=== PATIENT | female | born 1955 | race Caucasian/White ===

== ENCOUNTER 2016-06-12 09:20 | Outpatient (CLI) | payer OTHER ==
[2016-06-12] MEDS ORDERED: BARIUM SULFATE 135 ML BOTTLE PO ONE (10:25)
[2016-06-12] MEDS ORDERED: BARIUM SULFATE 176 GM BOTTLE PO ONE (10:25)
== END 2016-06-12 09:21 | disposition home or self-care (01) ==
DX: K21.9 Gastro-esophageal reflux disease without esophagitis (principal); K44.9 Diaphragmatic hernia without obstruction or gangrene; K22.8 Other specified diseases of esophagus; R13.10 Dysphagia, unspecified
CPT/HCPCS: 74220; A9270

== ENCOUNTER 2016-08-07 12:19 | Outpatient (CLI) | payer OTHER | END 2016-08-07 12:20 | disposition home or self-care (01) | DX: M79.631 Pain in right forearm (principal) ==

== ENCOUNTER 2016-09-06 16:50 | Outpatient (CLI) | payer OTHER | END 2016-09-06 16:51 | disposition home or self-care (01) | DX: F98.5 Adult onset fluency disorder (principal); H57.11 Ocular pain, right eye ==

== ENCOUNTER 2017-01-22 14:26 | Outpatient (CLI) | payer OTHER | END 2017-01-22 14:27 | disposition home or self-care (01) | LOC: LAB.WCP 14:26 | PROVIDERS: ATTEND Internal Medicine | DX: Z78.9 Other specified health status (principal) | CPT/HCPCS: 36415; 86803 ==

== ENCOUNTER 2017-03-19 14:53 | Outpatient (CLI) | payer OTHER | END 2017-03-19 14:54 | disposition home or self-care (01) | LOC: DI 14:53 | PROVIDERS: ATTEND Family Medicine | DX: Z53.9 Procedure and treatment not carried out, unspecified reason (principal) ==

== ENCOUNTER 2017-03-21 09:18 | Outpatient (CLI) | payer OTHER ==
--- NOTE | 2017-03-21 12:45 | XRAY Report ---
TWO-VIEW CHEST: 03/21/2017 CLINICAL INDICATION: Cough. COMPARISON: 01/29/2017 FINDINGS: Frontal and lateral views of the chest demonstrate a normal cardiac silhouette. The lungs remain clear. No effusion or pneumothorax is present. IMPRESSION: NORMAL CHEST, UNCHANGED. JOB #: [id number] EXT JOB #:[id number]
== END 2017-03-21 09:19 | disposition home or self-care (01) ==
LOC: DI.N 09:18
PROVIDERS: ATTEND Family Medicine
DX: R05 Cough (principal)
CPT/HCPCS: 71020

== ENCOUNTER 2017-09-21 08:00 | Outpatient (CLI) | payer OTHER ==
[2017-09-21 13:07] LABS: BASOPHILS % (AUTO) 0.9 %; EOSINOPHILS # (AUTO) 0.2 10^3/uL (0.0-0.7); EOSINOPHILS % (AUTO) 3.4 %; HGB - HEMOGLOBIN 12.2 g/dL (12.0-16.0); LYMPHOCYTES # (AUTO) 1.6 10^3/uL (1.5-3.5); LYMPHOCYTES % (AUTO) 30.7 %; MEAN CORPUSCULAR HEMOGLOBIN 27.1 pg (27.0-31.0); MEAN CORPUSCULAR HGB CONC 32.9 g/dL (32.0-36.0); MEAN CORPUSCULAR VOLUME 82.6 fL (81.0-99.0); MEAN PLATELET VOLUME 8.1 fL (7.9-10.8); MONOCYTES # (AUTO) 0.4 10^3/uL (0.0-1.0); MONOCYTES % (AUTO) 7.8 %; NEUTROPHILS % (AUTO) 57.2 %; PLT - PLATELET COUNT 199 10^3/uL (130-450); RED BLOOD COUNT 4.49 10^6/uL (4.20-5.40); RED CELL DISTRIBUTION WIDTH 15.2 % (12.0-15.0); WHITE BLOOD COUNT 5.2 x10^3/uL (4.8-10.8)
[2017-09-21 13:36] LABS: HEMOGLOBIN A1C 0.48 g/dL; HEMOGLOBIN A1C % 5.5 % (4.6-6.2)
[2017-09-21 13:45] LABS: CHOL/HDL RATIO 5.2 (<4.4); CHOLESTEROL 255 mg/dL; HDL CHOLESTEROL 49 mg/dL; LDL CHOLESTEROL,CALCULATED 171 mg/dL; LDL/HDL RATIO 3.5 (<4.4); VLDL CHOLESTEROL 35 mg/dL
== END 2017-09-21 08:01 | disposition home or self-care (01) ==
LOC: LAB.WCP 08:00
PROVIDERS: ATTEND Family Medicine
DX: Z00.00 Encounter for general adult medical examination without abnormal findings (principal); E78.5 Hyperlipidemia, unspecified; I10 Essential (primary) hypertension
CPT/HCPCS: 36415; 80061; 83036; 83721; 85025

== ENCOUNTER 2017-10-12 08:00 | Outpatient (CLI) | payer OTHER, MEDICAID ==
[2017-10-12 13:53] LABS: CALCIUM 9.7 mg/dL (8.5-10.3); CREATININE 0.9 mg/dL (0.4-1.0)
== END 2017-10-12 08:01 | disposition home or self-care (01) ==
LOC: LAB.WCP 08:00
PROVIDERS: ATTEND Family Medicine
DX: I10 Essential (primary) hypertension (principal)
CPT/HCPCS: 36415; 80048

== ENCOUNTER 2018-05-28 08:00 | Outpatient (CLI) | payer OTHER, MEDICAID ==
[2018-05-28 12:33] LABS: BASOPHILS % (AUTO) 0.8 %; EOSINOPHILS # (AUTO) 0.2 10^3/uL (0.0-0.7); EOSINOPHILS % (AUTO) 5.3 %; HGB - HEMOGLOBIN 11.8 g/dL (12.0-16.0); LYMPHOCYTES # (AUTO) 1.4 10^3/uL (1.5-3.5); LYMPHOCYTES % (AUTO) 30.2 %; MEAN CORPUSCULAR HEMOGLOBIN 28.1 pg (27.0-31.0); MEAN CORPUSCULAR HGB CONC 33.2 g/dL (32.0-36.0); MEAN CORPUSCULAR VOLUME 84.6 fL (81.0-99.0); MEAN PLATELET VOLUME 8.3 fL (7.9-10.8); MONOCYTES # (AUTO) 0.4 10^3/uL (0.0-1.0); MONOCYTES % (AUTO) 8.6 %; NEUTROPHILS # (AUTO) 2.6 10^3/uL (1.5-6.6); NEUTROPHILS % (AUTO) 55.1 %; PLT - PLATELET COUNT 234 10^3/uL (130-450); RED BLOOD COUNT 4.22 10^6/uL (4.20-5.40); RED CELL DISTRIBUTION WIDTH 15.7 % (12.0-15.0); WHITE BLOOD COUNT 4.7 x10^3/uL (4.8-10.8)
[2018-05-28 13:08] LABS: ALBUMIN/GLOBULIN RATIO 1.1 (1.0-2.2); ALKALINE PHOSPHATASE 82 IU/L (42-121); ALT ALANINE AMINOTRANSFERASE 24 IU/L (10-60); AST ASPARTATE AMINOTRANSFERASE 24 IU/L (10-42); BILIRUBIN,TOTAL 1.1 mg/dL (0.2-1.0); BUN - BLOOD UREA NITROGEN 11 mg/dL (6-20); CALCIUM 9.6 mg/dL (8.5-10.3); CARBON DIOXIDE - CO2 28 mmol/L (21-32); CHLORIDE 101 mmol/L (101-111); CHOL/HDL RATIO 4.8 (<4.4); CHOLESTEROL 230 mg/dL; CREATININE 0.8 mg/dL (0.4-1.0); GFR - MDRD 73 (>89); GLUCOSE 105 mg/dL (70-100); HDL CHOLESTEROL 48 mg/dL; LDL CHOLESTEROL,CALCULATED 148 mg/dL; LDL/HDL RATIO 3.1 (<4.4); SODIUM 136 mmol/L (135-145); TOTAL PROTEIN 7.5 g/dL (6.7-8.2); VLDL CHOLESTEROL 34 mg/dL
[2018-05-28 13:09] LABS: HB2 TOTAL 12.4 g/dL; HEMOGLOBIN A1C 0.45 g/dL; HEMOGLOBIN A1C % 5.5 % (4.6-6.2)
== END 2018-05-28 23:59 | disposition home or self-care (01) ==
LOC: LAB.WCP 08:00
PROVIDERS: ATTEND Family Medicine
DX: I10 Essential (primary) hypertension (principal); E78.5 Hyperlipidemia, unspecified
CPT/HCPCS: 36415; 80050; 80061; 83036; 83721

== ENCOUNTER 2018-11-08 07:11 | Outpatient (CLI) | payer OTHER ==
[2018-11-08 12:30] LABS: BASOPHILS % (AUTO) 0.4 %; EOSINOPHILS # (AUTO) 0.2 10^3/uL (0.0-0.7); EOSINOPHILS % (AUTO) 3.8 %; LYMPHOCYTES # (AUTO) 1.6 10^3/uL (1.5-3.5); LYMPHOCYTES % (AUTO) 31.5 %; MEAN CORPUSCULAR HEMOGLOBIN 27.8 pg (27.0-31.0); MEAN CORPUSCULAR HGB CONC 31.8 g/dL (32.0-36.0); MEAN CORPUSCULAR VOLUME 87.3 fL (81.0-99.0); MEAN PLATELET VOLUME 9.8 fL (7.9-10.8); MONOCYTES # (AUTO) 0.5 10^3/uL (0.0-1.0); MONOCYTES % (AUTO) 9.6 %; NEUTROPHILS # (AUTO) 2.7 10^3/uL (1.5-6.6); NEUTROPHILS % (AUTO) 54.5 %; PLT - PLATELET COUNT 233 10^3/uL (130-450); RED BLOOD COUNT 4.32 10^6/uL (4.20-5.40); RED CELL DISTRIBUTION WIDTH 14.7 % (12.0-15.0)
[2018-11-08 12:53] LABS: ALBUMIN/GLOBULIN RATIO 1.1 (1.0-2.2); ALKALINE PHOSPHATASE 107 IU/L (42-121); ALT ALANINE AMINOTRANSFERASE 23 IU/L (10-60); AST ASPARTATE AMINOTRANSFERASE 20 IU/L (10-42); BILIRUBIN,TOTAL 0.9 mg/dL (0.2-1.0); BUN - BLOOD UREA NITROGEN 13 mg/dL (6-20); CALCIUM 9.6 mg/dL (8.5-10.3); CARBON DIOXIDE - CO2 27 mmol/L (21-32); CHLORIDE 100 mmol/L (101-111); CHOL/HDL RATIO 5.6 (<4.4); CHOLESTEROL 222 mg/dL; CREATININE 0.8 mg/dL (0.4-1.0); GFR - MDRD 72 (>89); GLUCOSE 101 mg/dL (70-100); HDL CHOLESTEROL 40 mg/dL; LDL CHOLESTEROL,CALCULATED 144 mg/dL; LDL/HDL RATIO 3.6 (<4.4); SODIUM 139 mmol/L (135-145); TOTAL PROTEIN 7.7 g/dL (6.7-8.2); VLDL CHOLESTEROL 38 mg/dL
== END 2018-11-08 23:59 | disposition home or self-care (01) ==
LOC: LAB.WCP 07:11
PROVIDERS: ATTEND Family Medicine
DX: I10 Essential (primary) hypertension (principal); E78.5 Hyperlipidemia, unspecified; E03.9 Hypothyroidism, unspecified
CPT/HCPCS: 36415; 80050; 80061; 83721

== ENCOUNTER 2018-12-09 | Outpatient (CLI) | payer OTHER | END 2018-12-09 23:59 | disposition home or self-care (01) | DX: N39.0 Urinary tract infection, site not specified (principal) ==

== ENCOUNTER 2019-04-25 10:29 | Outpatient (CLI) | payer OTHER ==
[2019-04-25 13:27] LABS: BASOPHILS % (AUTO) 0.8 %; EOSINOPHILS # (AUTO) 0.2 10^3/uL (0.0-0.7); EOSINOPHILS % (AUTO) 4.2 %; LYMPHOCYTES # (AUTO) 1.4 10^3/uL (1.5-3.5); MEAN CORPUSCULAR HEMOGLOBIN 27.7 pg (27.0-31.0); MEAN CORPUSCULAR HGB CONC 31.5 g/dL (32.0-36.0); MEAN PLATELET VOLUME 10.3 fL (7.9-10.8); MONOCYTES # (AUTO) 0.4 10^3/uL (0.0-1.0); MONOCYTES % (AUTO) 8.4 %; NEUTROPHILS % (AUTO) 59.4 %; PLT - PLATELET COUNT 213 10^3/uL (130-450); RED BLOOD COUNT 4.33 10^6/uL (4.20-5.40); RED CELL DISTRIBUTION WIDTH 14.3 % (12.0-15.0)
[2019-04-25 19:06] LABS: ALBUMIN/GLOBULIN RATIO 1.3 (1.0-2.2); CALCIUM 9.7 mg/dL (8.5-10.3); CREATININE 0.8 mg/dL (0.4-1.0); TOTAL PROTEIN 7.2 g/dL (6.7-8.2)
[2019-04-25 19:14] LABS: T4 (THYROXINE) 6.76 ug/dL (6.09-12.23)
[2019-04-25 19:26] LABS: FOLATE 21.24 ng/mL (5.90 - >24.8)
[2019-04-26 04:31] LABS: ESTRADIOL <15 pg/mL; PROGESTERONE <0.5 ng/mL
== END 2019-04-25 23:59 | disposition home or self-care (01) ==
LOC: LAB.WCP 10:29
PROVIDERS: ATTEND Family Medicine
DX: I10 Essential (primary) hypertension (principal); E03.9 Hypothyroidism, unspecified; L65.9 Nonscarring hair loss, unspecified; K21.9 Gastro-esophageal reflux disease without esophagitis; D64.9 Anemia, unspecified
CPT/HCPCS: 36415; 80050; 82607; 82670; 82728; 82746; 83540; 84144; 84436; 84466; 84481

== ENCOUNTER 2019-07-08 06:06 | Outpatient (CLI) | payer MEDICAID, OTHER ==
[2019-07-08 13:46] LABS: H. PYLORIS ANTIGEN STL NEGATIVE (Negative)
== END 2019-07-08 23:59 | disposition home or self-care (01) ==
LOC: LAB.R 06:06
PROVIDERS: ATTEND Physician Assistant Medical
DX: K21.9 Gastro-esophageal reflux disease without esophagitis (principal)
CPT/HCPCS: 87338

== ENCOUNTER 2020-02-26 15:17 | Outpatient (CLI) | payer OTHER ==
--- NOTE | 2020-02-26 16:24 | CT Report ---
PROCEDURE: HEAD WO INDICATIONS: HEADACHE, CAROTID STENOSIS TECHNIQUE: Noncontrast 4.5 mm thick angled axial sections acquired from the foramen magnum to the vertex. For r adiation dose reduction, the following was used: automated exposure control, adjustment of mA and/or kV according to patient size. COMPARISON: None. FINDINGS: Image quality: Excellent. CSF spaces: Basal cisterns are patent. No extra-axial fluid collections. Ventricles are normal in size and shape. Brain: No midline shift. No intracranial masses or hemorrhage. Oseguera-white matter interface is norm al. Skull and face: Calvarium and visualized facial bones are intact, without suspicious lesions. Sinuses: Visualized sinuses and mastoids are clear. IMPRESSION: No acute intracranial finding. Reviewed by: David Espinosa MD on 02/26/2020 4:23 PM PDT Approved by: David Espinosa MD on 02/26/2020 4:23 PM PDT Station ID: [id number]
--- NOTE | 2020-02-26 18:11 | Ultrasound Report ---
PROCEDURE: Carotid Doppler Complete INDICATIONS: HEADACHE, CAROTID STENOSIS TECHNIQUE: Color and pulse Doppler interrogation was performed of both carotid systems, with image documentation and velocity measurements. COMPARISON: None. FINDINGS: Right side: Common carotid artery peak systolic velocity: 108.6 cm/sec. Internal carotid artery peak systolic velocity: 63.1 cm/sec. Internal carotid artery end diastolic velocity: 18.3 cm/sec. External carotid artery peak systolic velocity: 57.2 cm/sec. ICA/CCA peak systolic ratio: 0.6 . Oseguera scale imaging description: Mild to moderate amount of atherosclerotic plaques are seen in dista l common carotid artery and bilateral proximal internal and external carotid arteries. Percent internal carotid artery stenosis: Less than 50% . Vertebral artery: Flow direction is antegrade. Left side: Common carotid artery peak systolic velocity: 124.9 cm/sec. Internal carotid artery peak systolic velocity: 69.6 cm/sec. Internal carotid artery end diastolic velocity: 20.8 cm/sec. External carotid artery peak systolic velocity: 151.5 cm/sec. ICA/CCA peak systolic ratio: 0.6 . Oseguera scale imaging description: Mild to moderate amount of atherosclerotic plaques are seen in dista l common carotid artery and proximal internal and external carotid arteries. Percent internal carotid artery stenosis: Less than 50% . Vertebral artery: Flow direction is antegrade. IMPRESSION: Finding is suggestive of less than 50% stenosis in bilateral proximal internal carotid arteries. The estimate of stenosis included in the report of the imaging study was calculated using the NASCET method Reviewed by: Laith Prajapati MD on 02/26/2020 5:09 PM [facility] Approved by: Laith Prajapati MD on 02/26/2020 5:09 PM [facility] Station ID: [id number]
== END 2020-02-26 15:18 | disposition home or self-care (01) ==
LOC: DI 15:17
PROVIDERS: ATTEND Physician Assistant Medical
DX: R51.9 Headache, unspecified (principal); I65.23 Occlusion and stenosis of bilateral carotid arteries
CPT/HCPCS: 70450; 93880

== ENCOUNTER 2020-03-05 08:00 | Outpatient (CLI) | payer OTHER ==
[2020-03-05 11:59] LABS: ALBUMIN/GLOBULIN RATIO 1.2 (1.0-2.2); ALKALINE PHOSPHATASE 100 IU/L (42-121); ALT ALANINE AMINOTRANSFERASE 26 IU/L (10-60); AST ASPARTATE AMINOTRANSFERASE 21 IU/L (10-42); BILIRUBIN,TOTAL 1.2 mg/dL (0.2-1.0); BUN - BLOOD UREA NITROGEN 13 mg/dL (6-20); CALCIUM 9.9 mg/dL (8.5-10.3); CARBON DIOXIDE - CO2 26 mmol/L (21-32); CHLORIDE 101 mmol/L (101-111); CHOL/HDL RATIO 5.5 (<4.4); CHOLESTEROL 274 mg/dL; CREATININE 0.8 mg/dL (0.4-1.0); GLUCOSE 102 mg/dL (70-100); HDL CHOLESTEROL 50 mg/dL; LDL CHOLESTEROL,CALCULATED 180 mg/dL; LDL/HDL RATIO 3.6 (<4.4); SODIUM 138 mmol/L (135-145); TOTAL PROTEIN 7.4 g/dL (6.7-8.2); VLDL CHOLESTEROL 44 mg/dL
== END 2020-03-05 23:59 | disposition home or self-care (01) ==
LOC: LAB.WCP 08:00
PROVIDERS: ATTEND Physician Assistant Medical
DX: E78.5 Hyperlipidemia, unspecified (principal); E03.9 Hypothyroidism, unspecified
CPT/HCPCS: 36415; 80053; 80061; 83721; 84443

== ENCOUNTER 2020-07-11 07:00 | Outpatient (CLI) | payer OTHER ==
--- NOTE | 2020-07-11 16:58 | XRAY Report ---
PROCEDURE: Finger(s) LT INDICATIONS: L FINGER PX TECHNIQUE: AP hand, 2 views of the fourth finger(s) acquired. COMPARISON: None FINDINGS: Bones: No fractures or dislocations. No suspicious bony lesions. There is soft tissue swelling at the PIP joint of the fourth finger. A metallic ring obscures a portion of the shaft of the proximal p halanx of the fourth finger. Soft tissues: No suspicious soft tissue calcifications. No radiopaque foreign body. No soft tissue gas. IMPRESSION: No evidence acute bony abnormality of the left fourth finger. Reviewed by: Jimbo Burrows MD on 07/11/2020 3:56 PM [facility] Approved by: Jimbo Burrows MD on 07/11/2020 3:56 PM [facility] Station ID: [id number]
== END 2020-07-11 23:59 | disposition home or self-care (01) ==
LOC: DI.N 07:00
PROVIDERS: ATTEND Family Medicine
DX: M79.645 Pain in left finger(s) (principal)

== ENCOUNTER 2020-08-19 14:39 | Outpatient (CLI) | payer MEDICARE, OTHER ==
--- NOTE | 2020-08-19 16:25 | XRAY Report ---
PROCEDURE: Lumbar Spine 2 View INDICATIONS: LUMBAR PAIN WITH RADICULOPATHY TECHNIQUE: 2 views of the lumbar spine were acquired. COMPARISON: None. FINDINGS: No fracture. There is minimal dextrocurvature. Scattered multilevel endplate spurring and diffuse fac et arthropathy. Diffuse mild narrowing of the lumbar disc spaces. Vascular calcification seen in the aorta. IMPRESSION: Diffuse mild lumbar spondylosis and minimal dextrocurvature. No interval change since 12/10/2018. Reviewed by: Suraj Florian MD on 08/19/2020 4:24 PM PDT Approved by: Suraj Florian MD on 08/19/2020 4:24 PM PDT Station ID: [id number]
== END 2020-08-19 23:59 | disposition home or self-care (01) ==
LOC: DI.N 14:39
PROVIDERS: ATTEND Family Medicine
DX: M47.816 Spondylosis without myelopathy or radiculopathy, lumbar region (principal)

== ENCOUNTER 2020-09-30 08:00 | Outpatient (CLI) | payer MEDICARE, OTHER ==
[2020-09-30 12:17] LABS: ALBUMIN 4.3 g/dL (3.2-5.5); ALBUMIN/GLOBULIN RATIO 1.2 (1.0-2.2); ALKALINE PHOSPHATASE 97 IU/L (42-121); ALT ALANINE AMINOTRANSFERASE 30 IU/L (10-60); AST ASPARTATE AMINOTRANSFERASE 20 IU/L (10-42); BILIRUBIN,TOTAL 1.3 mg/dL (0.2-1.0); BUN - BLOOD UREA NITROGEN 16 mg/dL (6-20); CALCIUM 10.1 mg/dL (8.5-10.3); CARBON DIOXIDE - CO2 28 mmol/L (21-32); CHLORIDE 99 mmol/L (101-111); CHOL/HDL RATIO 5.4 (<4.4); CHOLESTEROL 274 mg/dL; CREATININE 0.8 mg/dL (0.4-1.0); GFR - MDRD 72 (>89); GLUCOSE 95 mg/dL (70-100); HDL CHOLESTEROL 51 mg/dL; LDL CHOLESTEROL,CALCULATED 177 mg/dL; LDL/HDL RATIO 3.5 (<4.4); POTASSIUM 3.9 mmol/L (3.5-5.0); SODIUM 136 mmol/L (135-145); TOTAL PROTEIN 7.8 g/dL (6.7-8.2); TRIGLYCERIDES 229 mg/dL; VLDL CHOLESTEROL 46 mg/dL
[2020-09-30 12:23] LABS: BASOPHILS # (AUTO) 0.1 10^3/uL (0.0-0.1); BASOPHILS % (AUTO) 0.7 %; EOSINOPHILS # (AUTO) 0.3 10^3/uL (0.0-0.7); EOSINOPHILS % (AUTO) 4.1 %; HCT - HEMATOCRIT 38.9 % (37.0-47.0); HGB - HEMOGLOBIN 12.2 g/dL (12.0-16.0); LYMPHOCYTES % (AUTO) 29.1 %; MEAN CORPUSCULAR HEMOGLOBIN 28.1 pg (27.0-31.0); MEAN CORPUSCULAR HGB CONC 31.4 g/dL (32.0-36.0); MEAN CORPUSCULAR VOLUME 89.6 fL (81.0-99.0); MEAN PLATELET VOLUME 10.6 fL (7.9-10.8); MONOCYTES # (AUTO) 0.6 10^3/uL (0.0-1.0); MONOCYTES % (AUTO) 8.1 %; NEUTROPHILS % (AUTO) 57.9 %; PLT - PLATELET COUNT 221 10^3/uL (130-450); RED BLOOD COUNT 4.34 10^6/uL (4.20-5.40); RED CELL DISTRIBUTION WIDTH 14.2 % (12.0-15.0); WHITE BLOOD COUNT 6.8 x10^3/uL (4.8-10.8)
== END 2020-09-30 23:59 | disposition home or self-care (01) ==
LOC: LAB.WCP 08:00
PROVIDERS: ATTEND Physician Assistant Medical
DX: E78.5 Hyperlipidemia, unspecified (principal); D64.9 Anemia, unspecified
CPT/HCPCS: 36415; 80053; 80061; 83721; 85025

== ENCOUNTER 2020-12-21 11:12 | Emergency (ER) | payer MEDICARE, OTHER ==
--- NOTE | 2020-12-21 11:26 | ED Physician Documentation ---
PD HPI LOWER EXT INJURY - Stated complaint Stated Complaint: LT HIP PX - Chief complaint Chief Complaint: Ext Problem - History obtained from History obtained from: Patient - History of Present Illness PD HPI LOW EXT INJURY LOCATION: Left, Hip Type of injury: No: Fall, Twist (She denies abrupt injury to the hip but states she has been walking differently status post knee replacement a month ago. Having weakness of the thigh muscles and lifting the leg. Has pain lateral left hip worsening. Persistent pain at knee. Persistent swelling lower leg since surgery, not worse.) Timing - onset: How many days ago (Had some bursitis lateral left hip previously, and it is feeling worse the past several days. Had opioid pain meds post op for the knee but stopped those week or more ago. Had decreased Ibuprofen as well, trying to be off meds.) Timing - details: Gradual onset, Waxing and waning Worsened by: Palpating (lateral hip over trochanter area) Associated symptoms: Numbness (below knee, anterolateral, and was told was nerve irritation from surgery and should improve.), Swelling (lower leg and foot since surgery, not changed with elevation nor compression socks.). No: Weakness, Discolored Contributing factors: No: Anticoagulated Recently seen: Clinic (seen at walk in today and referred to ER.), Surgery (left knee replacement a month ago Dr. Martins, and had follow up appt 2 weeks ago. Next appt is in 2 more weeks.) Review of Systems Constitutional: denies: Fever, Chills Nose: denies: Rhinorrhea / runny nose, Congestion Throat: denies: Sore throat Cardiac: denies: Chest pain / pressure, Palpitations Respiratory: denies: Dyspnea, Cough GI: denies: Abdominal Pain, Nausea, Vomiting, Constipation, Diarrhea Skin: denies: Rash, Lesions Neurologic: denies: Generalized weakness PD PAST MEDICAL HISTORY - Past Medical History Cardiovascular: Hypertension, High cholesterol Respiratory: None Endocrine/Autoimmune: HyPOthyroidism GI: None BABY SITTER: None : None HEENT: None Psych: None Musculoskeletal: None Derm: None - Past Surgical History Past Surgical History: Yes General: Appendectomy Ortho: Other /BABY SITTER: Hysterectomy, Breast implants - Present Medications Home Medications: Ambulatory Orders Medication Instructions Recorded Confirmed Cholecalciferol (Vitamin D3) 5,000 unit PO DAILY 09/07/15 09/07/15 [Vitamin D] Ezetimibe [Zetia] 10 mg PO QD 09/07/15 09/07/15 Levothyroxine [Synthroid] 50 mcg PO QDAC 09/07/15 09/07/15 Losartan [Cozaar] 100 mg PO DAILY 09/07/15 09/07/15 Omeprazole [PriLOSEC] 20 mg PO DAILY 09/07/15 09/07/15 hydroCHLOROthiazide 25 mg PO DAILY 09/07/15 09/07/15 [Hydrochlorothiazide] - Allergies Allergies/Adverse Reactions: Allergies Allergy/AdvReac Type Severity Reaction Status Date / Time propoxyphene HCl * AdvReac Unknown Verified 12/21/20 11:20 [From Darvon] Swpzxuu-Ouj-Cnx Reductase AdvReac Unknown Verified 12/21/20 11:20 Inhibitor Sulfa (Sulfonamide AdvReac Unknown Verified 12/21/20 11:20 Antibiotics) - Social History Does the pt smoke?: No Smoking Status: Never smoker Does the pt drink ETOH?: Yes Does the pt have substance abuse?: No - Immunizations Immunizations: TDAP current <10years PD ED PE NORMAL - Vitals Vital signs reviewed: Yes - General General: Alert and oriented X 3, No acute distress, Well developed/nourished - Cardiac Cardiac: RRR, No murmur - Respiratory Respiratory: Clear bilaterally - Abdomen Abdomen: Soft, Non tender, Other (no inguinal masses, rash, hernias. ) - Back Back: No spinal TTP - Derm Derm: Normal color, Warm and dry - Extremities Extremities: No calf tenderness / cord, Other (The lateral left hip over the trochanter shows some mild tenderness but no redness or warmth. Pain is increased with external rotation of the hip against resistance. The knee shows well-healing surgical scar with no effusion. There is mild swelling nonpitting of the lower leg. No calf tenderness) Results - Vitals Vitals: Vital Signs - 24 hr 12/21/20 12/21/20 11:16 12:04 Temperature 36.3 C L 36.4 C L Heart Rate 87 83 Respiratory 15 16 Rate Blood Pressure 136/84 H 145/77 H O2 Saturation 100 97 Oxygen O2 Source Room air - Rads (name of study) left hip Radiology: Prelim report reviewed (no acute process; femoral head appears normal), See rad report duplex left leg Radiology: Prelim report reviewed (per U/S tech - no DVT. ), Other PD MEDICAL DECISION MAKING - ED course Complexity details: reviewed results (The patient was referred to the walk-in clinic with the concern of the provider they are for DVT. Clinically seems lower probability but we can get an ultrasound to ensure.), re-evaluated patient (She has not been taking NSAIDs recently. I would have her resume this. She did not want to resume any opioids. ), considered differential (The patient has had swelling nonpitting of the lower leg and foot since surgery. Consider lymphatic edema. No recent increase. No calf tenderness. Hip pain sounds inflammation of the trochanteric bursa. No inguinal tenderness. ), d/w patient Departure - Departure Disposition: 01 Home, Self Care Clinical Impression: Left hip pain Condition: Stable Record reviewed to determine appropriate education?: Yes Instructions: ED Sprain Hip Follow-Up: Gali Galvez PA-C [Primary Care Provider] - Geovanny Martins DO [Physician No Access] - Comments: Your ultrasound is normal without any signs of blood clots. The x-ray of your hip does not show any acute process. Presume the pain in your hip is from ligaments and muscles being used differently subsequent to your knee replacement. Continue with some ibuprofen 2-3 times a day. Add Tylenol 500 mg every 4 times daily if needed for pains. Alternative would be 650 mg 3 times a day. Follow-up with Dr. Collins as planned. Call his office to discuss if they want to see you sooner. Continue with physical therapy. Discharge Date/Time: 12/21/20 13:03
[2020-12-21] MEDS ORDERED: ACETAMINOPHEN 325 MG TABLET PO STA (11:44)
[2020-12-21 12:05] VITALS: BP 145/77
--- NOTE | 2020-12-21 12:14 | XRAY Report ---
PROCEDURE: Hip w/Pelvis 2-3V LT INDICATIONS: left hip pain TECHNIQUE: AP pelvis with lateral view(s) of the bilateral hip(s). COMPARISON: None. FINDINGS: Bones: No fractures or dislocations. Pelvic ring appears intact. No suspicious bony lesions. Mild bilateral hip osteoarthritic degenerative changes. Soft tissues: The visualized bowel gas pattern is normal. No suspicious soft tissue calcifications. IMPRESSION: No fracture. No acute osseous lesion. If there are persistent symptoms or continued clinical concern for pathology, then repeat plain film radiographs (7-10 days) or advanced imaging (CT, MR, bone scan) should be considered for further evaluation. Reviewed by: Adore Watkins MD, PhD on 12/21/2020 12:13 PM PDT Approved by: Adore Watkins MD, PhD on 12/21/2020 12:13 PM PDT Station ID: [id number]
--- NOTE | 2020-12-21 12:44 | Ultrasound Report ---
PROCEDURE: Duplex Ext Veins Left INDICATIONS: left lower leg swelling, post knee replacement TECHNIQUE: Real-time imaging, as well as color and pulse Doppler interrogation, were performed of the lower extr emity deep veins from the inguinal ligament to the popliteal fossa. COMPARISON: None. FINDINGS: The deep veins are normally compressible, and free of intraluminal thrombus. Color and pu lse Doppler demonstrate normal phasic intraluminal flow. There is normal augmentation response to di stal compression maneuver. IMPRESSION: No evidence of deep vein thrombosis involving the left lower extremity. Reviewed by: Adore Watkins MD, PhD on 12/21/2020 12:42 PM PDT Approved by: Adore Watkins MD, PhD on 12/21/2020 12:42 PM PDT Station ID: [id number]
== END 2020-12-21 13:03 | disposition home or self-care (01) ==
LOC: ED 11:12
DX: M25.552 Pain in left hip (principal); R22.42 Localized swelling, mass and lump, left lower limb; Z96.652 Presence of left artificial knee joint; I10 Essential (primary) hypertension
CPT/HCPCS: 73502; 93971; 99282; 99284; A9270

== ENCOUNTER 2021-02-22 08:00 | Outpatient (CLI) | payer MEDICARE, OTHER | END 2021-02-22 23:59 | disposition home or self-care (01) | LOC: LAB 08:00 | PROVIDERS: ATTEND Family Medicine | DX: K30 Functional dyspepsia (principal); Z20.822 Contact with and (suspected) exposure to COVID-19 ==

== ENCOUNTER 2021-08-28 18:55 | Emergency (ER) | payer MEDICARE, OTHER ==
--- NOTE | 2021-08-28 19:14 | ED Physician Documentation ---
PD HPI CHEST PAIN - Stated complaint Stated Complaint: HEART PALPITATIONS - Chief complaint Chief Complaint: Cardiac - History obtained from History obtained from: Patient - Additional information Additional information: 66-year-old woman without any history of heart disease. She does have hypothyroidism and her thyroid medication was increased about 6 months ago. No thyroid checked since. She has had 3 episodes today of rapid uncomfortable palpitations. She feels very fatigued afterward. Each 1 lasts about an hour or 2 at a time. She has a cardiac rehab nurse at home, when she got off the Internet. It read as A. fib. Review of Systems Constitutional: reports: Reviewed and negative Nose: reports: Reviewed and negative Throat: reports: Reviewed and negative Cardiac: reports: Palpitations, Reviewed and negative PD PAST MEDICAL HISTORY - Past Medical History Cardiovascular: Hypertension, High cholesterol Respiratory: None Endocrine/Autoimmune: HyPOthyroidism GI: None EQUIPMENT SUPERINTENDENT: None : None HEENT: None Psych: None Musculoskeletal: None Derm: None - Past Surgical History Past Surgical History: Yes General: Appendectomy Ortho: Other /EQUIPMENT SUPERINTENDENT: Hysterectomy, Breast implants - Present Medications Home Medications: Ambulatory Orders Medication Instructions Recorded Confirmed Cholecalciferol (Vitamin D3) 5,000 unit PO DAILY 09/07/15 09/07/15 [Vitamin D] Ezetimibe [Zetia] 10 mg PO QD 09/07/15 09/07/15 Levothyroxine [Synthroid] 50 mcg PO QDAC 09/07/15 09/07/15 Losartan [Cozaar] 100 mg PO DAILY 09/07/15 09/07/15 Omeprazole [PriLOSEC] 20 mg PO DAILY 09/07/15 09/07/15 hydroCHLOROthiazide 25 mg PO DAILY 09/07/15 09/07/15 [Hydrochlorothiazide] Metoprolol Succinate [Toprol Xl] 25 mg PO DAILY #30 tablet 08/28/21 - Allergies Allergies/Adverse Reactions: Allergies Allergy/AdvReac Type Severity Reaction Status Date / Time propoxyphene HCl * AdvReac Unknown Verified 08/28/21 19:00 [From Darvon] Pyirwsu-SCK-TvG Reductase AdvReac Unknown Verified 08/28/21 19:00 Inhibitor [Yusppsz-Dbt-Tnv Reductase Inhibitor] Sulfa (Sulfonamide AdvReac Unknown Verified 08/28/21 19:00 Antibiotics) - Social History Does the pt smoke?: No Smoking Status: Never smoker Does the pt drink ETOH?: Yes Does the pt have substance abuse?: No - Immunizations Immunizations: TDAP current <10years PD ED PE NORMAL - Vitals Vital signs reviewed: Yes - General General: Alert and oriented X 3, Other (She appears anxious and tearful but otherwise in no distress. She is in sinus tachycardia on the monitor.) - HEENT HEENT: PERRL, EOMI - Neck Neck: Supple, no meningeal sign, No bony TTP - Cardiac Cardiac: RRR, No murmur - Respiratory Respiratory: No respiratory distress, Clear bilaterally - Abdomen Abdomen: Non tender - Derm Derm: Normal color, Warm and dry - Extremities Extremities: No edema, No calf tenderness / cord - Neuro Neuro: Alert and oriented X 3, Normal speech Results - Vitals Vitals: Vital Signs - 24 hr 08/28/21 08/28/21 08/28/21 18:58 19:31 19:44 Temperature 36.6 C Heart Rate 128 H 85 Respiratory 20 10 L Rate Blood Pressure 186/116 H 175/82 H 161/95 H O2 Saturation 100 100 08/28/21 19:54 Temperature Heart Rate Respiratory Rate Blood Pressure 161/95 H O2 Saturation Oxygen O2 Source Room air - EKG (time done) 1908 Rate: Rate (enter#) (102) Rhythm: Sinus tachycardia [place]: Normal Intervals: Normal AR, Prolonged QT QRS: Normal Ischemia: Normal ST segments - Labs Labs: Laboratory Tests 08/28/21 08/28/21 08/28/21 19:14 19:14 19:14 WBC 6.9 RBC 4.58 Hgb 12.4 Hct 39.5 MCV 86.2 MCH 27.1 MCHC 31.4 L RDW 14.5 Plt Count 226 MPV 9.6 Neut # (Auto) 3.8 Lymph # (Auto) 2.2 [place] # (Auto) 0.5 Eos # (Auto) 0.3 Baso # (Auto) 0.1 Absolute Nucleated RBC 0.00 Nucleated RBC % 0.0 PT INR Sodium 140 Potassium 3.0 L Chloride 102 Carbon Dioxide 26 Anion Gap 12.0 BUN 20 Creatinine 0.8 Estimated GFR (MDRD) 72 L Glucose 121 H Calcium 10.4 H Magnesium 1.9 TSH 5.30 Free T4 0.83 Free T3 pg/mL 2.98 08/28/21 19:21 WBC RBC Hgb Hct MCV MCH MCHC RDW Plt Count MPV Neut # (Auto) Lymph # (Auto) [place] # (Auto) Eos # (Auto) Baso # (Auto) Absolute Nucleated RBC Nucleated RBC % PT 11.5 INR 1.0 Sodium Potassium Chloride Carbon Dioxide Anion Gap BUN Creatinine Estimated GFR (MDRD) Glucose Calcium Magnesium TSH Free T4 Free T3 pg/mL PD MEDICAL DECISION MAKING - ED course ED course: 66-year-old woman presents with what sounds like a first episode of paroxysmal A. fib which she has had a few episodes of today. On arrival here she did have some atrial ectopy but no A. fib on the monitor. The atrial ectopy resolved after the administration of IV metoprolol. Work-up here shows that her thyroid function is appropriate on her current supplementation. Her potassium was slightly low at 3.0 and repleted orally. She was feeling much better after the metoprolol. Departure - Departure Disposition: 01 Home, Self Care Clinical Impression: Atrial fibrillation Qualifiers: Atrial fibrillation type: paroxysmal Qualified Code(s): I48.0 - Paroxysmal atrial fibrillation Condition: Good Record reviewed to determine appropriate education?: Yes Instructions: Atrial Fibrillation Dc Follow-Up: Gali Galvez PA-C [Primary Care Provider] - Prescriptions: Metoprolol Succinate [Toprol Xl] 25 mg PO DAILY #30 tablet Comments: I sent your prescription to [facility] in [place]. As discussed it sounds like you had a few brief episodes of atrial fibrillation today. Until you follow-up with ADITHYA Galvez, take a baby aspirin a day. I am also starting you on metoprolol which will help with the rate control and may help keep you from going into atrial fibrillation. I suspect ADITHYA Galvez will continue the metoprolol and she may refer you for an echocardiogram. Also worth a discussion of long-term anticoagulation, until that discussion happens take a baby aspirin a day. Return for new or worsening symptoms.
[2021-08-28 19:20] LABS: BASOPHILS # (AUTO) 0.1 10^3/uL (0.0-0.1); BASOPHILS % (AUTO) 0.7 %; EOSINOPHILS # (AUTO) 0.3 10^3/uL (0.0-0.7); EOSINOPHILS % (AUTO) 4.1 %; HCT - HEMATOCRIT 39.5 % (37.0-47.0); HGB - HEMOGLOBIN 12.4 g/dL (12.0-16.0); LYMPHOCYTES # (AUTO) 2.2 10^3/uL (1.5-3.5); MEAN CORPUSCULAR HEMOGLOBIN 27.1 pg (27.0-31.0); MEAN CORPUSCULAR HGB CONC 31.4 g/dL (32.0-36.0); MEAN CORPUSCULAR VOLUME 86.2 fL (81.0-99.0); MEAN PLATELET VOLUME 9.6 fL (7.9-10.8); MONOCYTES # (AUTO) 0.5 10^3/uL (0.0-1.0); MONOCYTES % (AUTO) 7.7 %; NEUTROPHILS # (AUTO) 3.8 10^3/uL (1.5-6.6); NEUTROPHILS % (AUTO) 55.2 %; PLT - PLATELET COUNT 226 10^3/uL (130-450); RED BLOOD COUNT 4.58 10^6/uL (4.20-5.40); RED CELL DISTRIBUTION WIDTH 14.5 % (12.0-15.0); WHITE BLOOD COUNT 6.9 x10^3/uL (4.8-10.8)
[2021-08-28 19:30] LABS: CALCIUM 10.4 mg/dL (8.5-10.3); CREATININE 0.8 mg/dL (0.4-1.0); MAGNESIUM 1.9 mg/dL (1.7-2.8)
[2021-08-28] MEDS: METOPROLOL 5 MG/5 ML VIAL IVP STA (19:31)
[2021-08-28 19:33] LABS: PT - PROTHROMBIN TIME 11.5 secs (9.9-12.6)
[2021-08-28 19:55] LABS: THYROID STIMULATING HORMONE 5.3 uIU/mL (0.34-5.60)
[2021-08-28 19:56] LABS: FREE T3 2.98 pg/mL (2.5-3.9)
[2021-08-28 19:57] LABS: FREE T4 (FREE THYROXINE) 0.83 ng/dL (0.58-1.64)
[2021-08-28] MEDS: POTASSIUM CHLORIDE 20 MEQ TABLET PO STA (19:58)
[2021-08-28 20:43] VITALS: BP 149/72
[2021-08-28] MEDS: ASPIRIN CHEW 81 MG TABLET PO STA (20:49)
[2021-08-28] MEDS: METOPROLOL SUCCINATE 25 MG TABLET PO STA (20:49)
== END 2021-08-28 21:01 | disposition home or self-care (01) ==
LOC: ED 18:55
DX: I48.0 Paroxysmal atrial fibrillation (principal)
CPT/HCPCS: 36415; 80048; 83735; 84439; 84443; 84481; 85025; 85610; 93005; 96374; 99283; 99284; A9270

== ENCOUNTER 2021-09-08 07:39 | Outpatient (CLI) | payer MEDICARE, OTHER ==
[2021-09-08 13:13] LABS: BASOPHILS # (AUTO) 0.1 10^3/uL (0.0-0.1); BASOPHILS % (AUTO) 0.8 %; EOSINOPHILS # (AUTO) 0.4 10^3/uL (0.0-0.7); EOSINOPHILS % (AUTO) 6.3 %; HCT - HEMATOCRIT 36.7 % (37.0-47.0); HGB - HEMOGLOBIN 11.5 g/dL (12.0-16.0); LYMPHOCYTES # (AUTO) 1.6 10^3/uL (1.5-3.5); LYMPHOCYTES % (AUTO) 25.8 %; MEAN CORPUSCULAR HEMOGLOBIN 27.3 pg (27.0-31.0); MEAN CORPUSCULAR HGB CONC 31.3 g/dL (32.0-36.0); MEAN PLATELET VOLUME 10.2 fL (7.9-10.8); MONOCYTES # (AUTO) 0.4 10^3/uL (0.0-1.0); MONOCYTES % (AUTO) 5.8 %; NEUTROPHILS # (AUTO) 3.7 10^3/uL (1.5-6.6); PLT - PLATELET COUNT 209 10^3/uL (130-450); RED BLOOD COUNT 4.22 10^6/uL (4.20-5.40); RED CELL DISTRIBUTION WIDTH 14.6 % (12.0-15.0)
[2021-09-08 13:49] LABS: ALBUMIN 3.9 g/dL (3.2-5.5); ALBUMIN/GLOBULIN RATIO 1.1 (1.0-2.2); ALKALINE PHOSPHATASE 106 IU/L (42-121); ALT ALANINE AMINOTRANSFERASE 25 IU/L (10-60); AST ASPARTATE AMINOTRANSFERASE 20 IU/L (10-42); BILIRUBIN,TOTAL 1.1 mg/dL (0.2-1.0); BUN - BLOOD UREA NITROGEN 16 mg/dL (6-20); CALCIUM 9.8 mg/dL (8.5-10.3); CARBON DIOXIDE - CO2 27 mmol/L (21-32); CHLORIDE 101 mmol/L (101-111); CHOL/HDL RATIO 5.2 (<4.4); CHOLESTEROL 236 mg/dL; CREATININE 0.9 mg/dL (0.4-1.0); GFR - MDRD 63 (>89); GLUCOSE 115 mg/dL (70-100); HDL CHOLESTEROL 45 mg/dL; LDL CHOLESTEROL,CALCULATED 135 mg/dL; POTASSIUM 3.6 mmol/L (3.5-5.0); SODIUM 139 mmol/L (135-145); TOTAL PROTEIN 7.5 g/dL (6.7-8.2); TRIGLYCERIDES 281 mg/dL; VLDL CHOLESTEROL 56 mg/dL
[2021-09-08 13:55] LABS: THYROID STIMULATING HORMONE 4.01 uIU/mL (0.34-5.60)
== END 2021-09-08 07:40 | disposition home or self-care (01) ==
LOC: LAB.N 07:39
PROVIDERS: ATTEND Physician Assistant Medical
DX: I10 Essential (primary) hypertension (principal); E78.5 Hyperlipidemia, unspecified; E03.9 Hypothyroidism, unspecified
CPT/HCPCS: 36415; 80053; 80061; 83721; 84443; 85025

== ENCOUNTER 2021-09-15 14:09 | Outpatient (CLI) | payer MEDICARE, OTHER | END 2021-09-15 14:10 | disposition home or self-care (01) | LOC: MAC.MOP 14:09 | PROVIDERS: ATTEND Physician Assistant Medical | DX: R00.2 Palpitations (principal) | CPT/HCPCS: 93246 ==

== ENCOUNTER 2021-10-05 14:44 | Outpatient (CLI) | payer MEDICARE, OTHER | END 2021-10-05 14:45 | disposition home or self-care (01) | LOC: MAC.MOP 14:44 | PROVIDERS: ATTEND Physician Assistant Medical | DX: I44.0 Atrioventricular block, first degree (principal); I47.1 Supraventricular tachycardia; I49.1 Atrial premature depolarization; I49.3 Ventricular premature depolarization | CPT/HCPCS: 93246 ==

== ENCOUNTER 2022-01-19 08:31 | Outpatient (CLI) | payer MEDICARE, OTHER ==
[2022-01-19 09:22] VITALS: BP 150/72
--- NOTE | 2022-01-19 09:22 | SLEEP CARE CONSULTATION ---
Information from patient questionnaire entered by Nikkie Hill. I have reviewed and concur with the information entered by Nikkie Hill. This document represents the service I personally performed and the decisions made by me, Karissa Mei ARNP. History of Present Illness Service Date and Time: 01/19/2022 08 Reason for Visit: New patient Chief Complaint: reports: Snoring, Observed pauses in breathing Date of Onset: DON'T KNOW Usual bedtime: 8PM Time it takes to fall asleep: A FEW MINUTES - sleep number bed states about 8 minutes Snores at night: Yes Observed to quit breathing while asleep: Yes (per ; she states she finds herself holding her breath during the day) Sleeps alone due to snoring: No Number of times waking at night: 1-2 Reasons for waking at night: reports: Bathroom. denies: Choking, Snoring, Gasping for air Toss, Turn, or Twitch while sleeping: Yes Recalls having dreams: Yes Usually gets out of bed at: 4-430AM Feels refreshed in the morning: Yes (MOST OF THE TIME) Morning headache: No Sleepy or fatigued during the day: No Ever fallen asleep while driving: No Takes day naps: No Dreams during day naps: No Prior sleep studies: No Additional HPI information: I had the pleasure of seeing EVERETT CANTRELL today regarding the possibility of her having a sleep disorder. Her current complaints are snoring and observed pauses in breathing. She was sent here by her physician for evaluation as part of an issue that sent her to the ED. She had a high blood pressure and tachycardia at rest. Her potassium was found to be low. She has seen cardiology and had a trial of Eliquis but this did not "agree" with her. She is taking potassium and magnesium and is feeling "great". - Parasomnia Symptoms Ever been unable to move upon waking from sleep: No Walks in sleep: No Talks in sleep: No Ever acted out dreams in sleep: No Ever felt weak in the knees when startled or emotional: No Bothered by creepy, crawly, restless sensations in legs: No Problems with memory or concentration: Yes (concentration, focusing on one thing; good multitasker) Subjective Initial [place] Sleepiness Scale score: 5 (01/06/22) Past Medical History Past Medical History: reports: Hypertension, Arthritis, Arrythmia (Atrial fibrillation), Hypothyroidism, Other (AFIB, HIGH CHOLESTEROL) Social History The patient's occupation is a RE. Patient is and lives in [place]. Have you smoked in the past 12 months: No Alcohol use: Yes Alcohol amount and frequency: 1 GLASS OF WINE, 10-12 TIMES PER YEAR Caffeine use: Yes Caffeine amount and frequency: 2 CUPS EVERY MORNING Family History Family history of sleep disordered breathing: Yes Family Hx Sleep Apnea: Other: Snoring (DAUGHTER), Sleep apnea - Treated (DAUGHTER) Allergies and Home Medications Known drug allergies: Yes Drug allergies reviewed: Yes (statins, sulfas, darvon, eliquis) Home medication list reviewed: Yes Allergy and home medication list: Allergies propoxyphene HCl * [From Darvon] Adverse Reaction (Verified 08/28/21 19:00) Unknown Sgdbnhj-BYH-AdV Reductase Inhibitor [Duiavft-Uow-Eak Reductase Inhibitor] Adverse Reaction (Verified 08/28/21 19:00) Unknown Sulfa (Sulfonamide Antibiotics) Adverse Reaction (Verified 08/28/21 19:00) Unknown Medications: Ezetimibe 10 mg Losartan/HCTZ 100-25 mg Metoprolol 25 mg Levothryoxine 75 mcg Aspirin 81 mg Potassium Glucosamine Sulfate 1000 mg D3 1000 IU Folic Acid 400 mcg Flaxseed oil 4200 mg Balance of Nature Fruits & Veggies Magnesium Citrate 250 mg Review of Systems Weight gain over past 5 years: 15-20 LBS Cardiovascular: reports: high blood pressure, irregular heart rate or pulse, leg or foot swelling Respiratory: reports: shortness of breath Ear/Nose/Throat: reports: nasal congestion, dry mouth/throat, tonsillectomy Endocrine: reports: thyroid disease Musculoskeletal: reports: joint pain, muscle pain or cramping Immunologic: reports: sneezing, allergies to food or environment (HAYFEVER ) Physical Exam Vital signs obtained and entered by: BULLOCK MA Blood Pressure: 150/72 (LEFT ARM ) Cuff size: regular Heart Rate: 87 O2 Saturation: 98 Height: 5 ft 8 in Weight: 233 lb Body Mass Index: 35.4 BMI Classification: Obese Neck circumference: 15.5 (INCHES) Mouth and throat: narrow oropharynx Soft palate: long Hard palate: normal Uvula: normal Uvula visualization: 25% Mallampati Class III Tongue: enlarged in size with teeth luis on lateral edges Tonsils: absent bilaterally Neck: normal w/o lymphadenopathy or thyromegaly Heart: regular rate and rhythm Lungs: clear bilaterally Impression and Plan 1. Suspected Obstructive Sleep Apnea-Hypopnea Syndrome, as suggested by a history of loud and irregular snoring, observed cessation of breath while asleep and cognitive impairment. Narrow oropharynx and obesity are common predisposing factors for obstructive sleep apnea-hypopnea syndrome. I recommend proceeding to polysomnography to confirm the diagnosis and to assess severity. If the patient has significant sleep disordered breathing, a manual CPAP titration study will also be performed to find the optimal treatment pressure. I informed the patient of what the sleep studies involve and after some discussion, obtained agreement to proceed. The pathophysiology of obstructive sleep apnea-hypopnea syndrome was discussed with the patient and health risks of cardiovascular and cerebrovascular disease if not treated. Risks of drowsy driving discussed in detail and patient advised to avoid long distance driving and to dust puller at the first sign of drowsiness. Patient agreed to plan. * Schedule polysomnography * Avoid long distance driving or driving when feeling sleepy. * Avoid alcohol, sedative and muscle relaxant around bedtime. * Attempt to lose weight. * Review instructions provided by trained office staff on how to prepare for the sleep study. * Return for follow-up after sleep study completed. Counseling Topics: Weight loss health impact Visit Type: In Office Time Spent with Patient (minutes): 32 Provider Statement: I spent 100% of the Face to Face Visit with the patient with greater than 50% spent counseling the patient and coordination of care.
== END 2022-01-19 08:32 | disposition home or self-care (01) ==
LOC: SC 08:31
PROVIDERS: ATTEND Nurse Practitioner Family
DX: R06.83 Snoring (principal); R06.81 Apnea, not elsewhere classified; I10 Essential (primary) hypertension; I48.91 Unspecified atrial fibrillation; E66.9 Obesity, unspecified; Z68.35 Body mass index [BMI] 35.0-35.9, adult
CPT/HCPCS: 99203; G0463; 99212

== ENCOUNTER 2022-03-23 07:05 | Outpatient (CLI) | payer MEDICARE, OTHER ==
[2022-03-23 12:52] LABS: ALBUMIN 3.9 g/dL (3.2-5.5); ALKALINE PHOSPHATASE 130 IU/L (42-121); ALT ALANINE AMINOTRANSFERASE 40 IU/L (10-60); AST ASPARTATE AMINOTRANSFERASE 28 IU/L (10-42); BILIRUBIN,TOTAL 0.7 mg/dL (0.2-1.0); BUN - BLOOD UREA NITROGEN 18 mg/dL (6-20); CALCIUM 9.7 mg/dL (8.5-10.3); CARBON DIOXIDE - CO2 29 mmol/L (21-32); CHLORIDE 101 mmol/L (101-111); CHOL/HDL RATIO 5.3 (<4.4); CHOLESTEROL 247 mg/dL; CREATININE 0.8 mg/dL (0.4-1.0); GFR - MDRD 72 (>89); GLUCOSE 102 mg/dL (70-100); HDL CHOLESTEROL 47 mg/dL; LDL CHOLESTEROL,CALCULATED 157 mg/dL; LDL/HDL RATIO 3.3 (<4.4); POTASSIUM 3.9 mmol/L (3.5-5.0); SODIUM 139 mmol/L (135-145); TOTAL PROTEIN 7.7 g/dL (6.7-8.2); TRIGLYCERIDES 217 mg/dL; VLDL CHOLESTEROL 43 mg/dL
== END 2022-03-23 07:06 | disposition home or self-care (01) ==
LOC: LAB.N 07:05
PROVIDERS: ATTEND Physician Assistant Medical
DX: E78.5 Hyperlipidemia, unspecified (principal)
CPT/HCPCS: 36415; 80053; 80061; 83721

== ENCOUNTER 2022-03-27 08:00 | Outpatient (CLI) | payer MEDICARE, OTHER | END 2022-03-27 23:59 | disposition home or self-care (01) | LOC: LAB.WCP 08:00 | PROVIDERS: ATTEND Physician Assistant Medical | DX: L01.00 Impetigo, unspecified (principal) | CPT/HCPCS: 87070; 87205 ==

== ENCOUNTER 2022-11-27 16:12 | Outpatient (CLI) | payer MEDICARE, OTHER ==
--- NOTE | 2022-11-27 16:54 | XRAY Report ---
PROCEDURE: Chest 2 View X-Ray INDICATIONS: POST COVID 19 CONDITION,COUGH TECHNIQUE: 2 views of the chest were acquired. COMPARISON: None. FINDINGS: Surgical changes and devices: None. Lungs and pleura: No pleural effusions or pneumothorax. Lungs are clear. Mediastinum: Mediastinal contours appear normal. Heart size is normal. Bones and chest wall: No suspicious bony lesions. Overlying soft tissues appear unremarkable. Dave ateral breast implants with capsular calcifications. IMPRESSION: No acute cardiopulmonary process. Reviewed by: Forrest Michaels on 11/27/2022 4:53 PM PDT Approved by: Forrest Michaels on 11/27/2022 4:53 PM PDT Station ID: [id number]
== END 2022-11-27 16:13 | disposition home or self-care (01) ==
LOC: DI 16:12
PROVIDERS: ATTEND Nurse Practitioner
DX: R05.9 Cough, unspecified (principal)

== ENCOUNTER 2023-01-13 08:00 | Outpatient (CLI) | payer MEDICARE, OTHER | END 2023-01-13 23:59 | disposition home or self-care (01) | LOC: LAB.N 08:00 | PROVIDERS: ATTEND Registered Nurse | DX: R05.9 Cough, unspecified (principal); Z20.822 Contact with and (suspected) exposure to COVID-19 ==

== ENCOUNTER 2023-01-17 12:33 | Outpatient (CLI) | payer MEDICARE, OTHER ==
--- NOTE | 2023-01-17 15:16 | XRAY Report ---
PROCEDURE: Chest 2 View X-Ray INDICATIONS: DYSPNEA ON EXERTION,COUGH,UNSPECIFIED TECHNIQUE: 2 views of the chest were acquired. COMPARISON: None. FINDINGS: Surgical changes and devices: Calcified breast implants. Lungs and pleura: No pleural effusions or pneumothorax. Lungs are clear. Mediastinum: Mediastinal contours appear normal. Heart size is normal. Bones and chest wall: No suspicious bony lesions. Overlying soft tissues appear unremarkable. IMPRESSION: No acute cardiopulmonary process. Reviewed by: Nilay Reyes on 01/17/2023 3:15 PM PDT Approved by: Nilay Reyes on 01/17/2023 3:15 PM PDT Station ID: [id number]
== END 2023-01-17 12:34 | disposition home or self-care (01) ==
LOC: DI 12:33
PROVIDERS: ATTEND Registered Nurse
DX: R06.09 Other forms of dyspnea (principal); R05.9 Cough, unspecified

== ENCOUNTER 2023-03-15 09:06 | Outpatient (CLI) | payer MEDICARE, OTHER ==
--- NOTE | 2023-03-16 15:57 | Mammography Report ---
BILATERAL DIGITAL DIAGNOSTIC MAMMOGRAM 3D/2D WITH AUGMENTATION: 03/15/2023 CLINICAL: Palpable right breast lump. Due for bilateral. Comparison is made to exams dated: 08/08/2021 mammogram - [facility] and 03/10/2016 m ammogram - [facility]. Both breasts are almost entirely fatty (category a/<25% glandular tissue). Bilateral prepectoral silicone implants with calcified capsules are stable. Right implant is stable a nd has a focal bulge. No significant masses, calcifications, or other findings are seen in either breast. Specifically, no finding to correspond to the patient's palpable abnormality. IMPRESSION: INCOMPLETE: NEEDS ADDITIONAL IMAGING EVALUATION There is no abnormality seen in the right breast to correspond with the palpable abnormality at 3 o'c lock in the middle depth. Ultrasound is recommended for full evaluation of this area. This was perfor med immediately following this exam. The implants are stable. Based on the Tyrer Cuzick model (a risk assessment model) the patients lifetime risk is 2.4% and her 10 year risk is 1.2%. According to the ACR, ACS, and NCCN guidelines, an annual breast MRI exam jose antonio g with mammogram is recommended if the patients lifetime risk is 20% or greater. This exam was interpreted at Station ID: [id number]. NOTE: For mammograms, a report in lay terms will be sent to the patient. Approximately 15% of breast malignancies will not be visualized mammographically. In the management of a palpable breast mass, a negative mammogram must not discourage biopsy of a clinically suspicious lesion. Electronically Signed By: Savannah still/:03/15/2023 10:14:34 ACR BI-RADS Category 0: Incomplete 3340F PARENCHYMAL PATTERN: (F) - The breast(s) demonstrate(s) diffuse fatty replacement. BI-RADS CATEGORY: (0) - 0 Ultrasound [id number] Immediate follow-up LATERALITY: (B)
--- NOTE | 2023-03-16 15:57 | Ultrasound Report ---
LIMITED ULTRASOUND OF RIGHT BREAST: 03/15/2023 CLINICAL: Palpable right breast lump. Comparison is made to exams dated: 03/15/2023 mammogram, 08/08/2021 mammogram - [facility], 03/10/2016 mammogram, 03/10/2016 ultrasound, 09/03/2014 ultrasound, and 09/03/2014 mammogram - [facility]. Color flow and real-time ultrasound of the right breast 3 o'clock region were performed. Oseguera scale images of the real-time examination were reviewed. There is a dense area of echogenic shadow in the right breast at 3 o'clock posterior depth correspond ing to the patient's palpable abnormality. This corresponds to stable thickening over the implant on mammogram. IMPRESSION: BENIGN The palpable abnormality in the right breast corresponds to stable thickening over the implant, likel y silicone and/ or calcified capsule, and is benign. Return to annual mammogram screening schedule is recommended. Findings and recommendations were conveyed to the patient at time of exam. This exam was interpreted at Station ID: [id number]. Electronically Signed By: Savannah still/:03/15/2023 10:34:07 Ultrasound BI-RADS: 2 Benign BI-RADS CATEGORY: (2) - 2 Mammogram [id number] return to screening LATERALITY: (B)
== END 2023-03-15 09:07 | disposition home or self-care (01) ==
LOC: DI 09:06
PROVIDERS: ATTEND Physician Assistant Medical
DX: N63.15 Unspecified lump in the right breast, overlapping quadrants (principal); Z98.82 Breast implant status

== ENCOUNTER 2023-03-27 07:04 | Outpatient (CLI) | payer MEDICARE, OTHER ==
[2023-03-27 12:20] LABS: BASOPHILS % (AUTO) 0.7 %; EOSINOPHILS # (AUTO) 0.2 10^3/uL (0.0-0.7); EOSINOPHILS % (AUTO) 3.2 %; HCT - HEMATOCRIT 39.8 % (37.0-47.0); HGB - HEMOGLOBIN 12.1 g/dL (12.0-16.0); LYMPHOCYTES # (AUTO) 1.7 10^3/uL (1.5-3.5); LYMPHOCYTES % (AUTO) 30.4 %; MEAN CORPUSCULAR HEMOGLOBIN 27.6 pg (27.0-31.0); MEAN CORPUSCULAR HGB CONC 30.4 g/dL (32.0-36.0); MEAN CORPUSCULAR VOLUME 90.7 fL (81.0-99.0); MONOCYTES # (AUTO) 0.5 10^3/uL (0.0-1.0); MONOCYTES % (AUTO) 8.3 %; NEUTROPHILS # (AUTO) 3.2 10^3/uL (1.5-6.6); NEUTROPHILS % (AUTO) 57.2 %; PLT - PLATELET COUNT 224 10^3/uL (130-450); RED BLOOD COUNT 4.39 10^6/uL (4.20-5.40); RED CELL DISTRIBUTION WIDTH 14.9 % (12.0-15.0); WHITE BLOOD COUNT 5.7 x10^3/uL (4.8-10.8)
[2023-03-27 12:47] LABS: ALBUMIN 4.3 g/dL (3.2-5.5); ALBUMIN/GLOBULIN RATIO 1.6 (1.0-2.2); ALKALINE PHOSPHATASE 102 IU/L (42-121); ALT ALANINE AMINOTRANSFERASE 28 IU/L (10-60); AST ASPARTATE AMINOTRANSFERASE 20 IU/L (10-42); BILIRUBIN,TOTAL 0.8 mg/dL (0.2-1.0); BUN - BLOOD UREA NITROGEN 19 mg/dL (6-20); CALCIUM 10.1 mg/dL (8.5-10.3); CARBON DIOXIDE - CO2 30 mmol/L (21-32); CHLORIDE 103 mmol/L (101-111); CHOL/HDL RATIO 5.2 (<4.4); CHOLESTEROL 261 mg/dL; CREATININE 0.9 mg/dL (0.6-1.3); GFR - MDRD 62 (>89); GLUCOSE 105 mg/dL (74-104); HDL CHOLESTEROL 50 mg/dL; LDL CHOLESTEROL,CALCULATED 169 mg/dL; LDL/HDL RATIO 3.4 (<4.4); POTASSIUM 3.9 mmol/L (3.5-4.5); SODIUM 138 mmol/L (135-145); TRIGLYCERIDES 210 mg/dL (48-352); VLDL CHOLESTEROL 42 mg/dL
[2023-03-27 12:50] LABS: THYROID STIMULATING HORMONE 4.23 uIU/mL (0.34-5.60)
== END 2023-03-27 07:05 | disposition home or self-care (01) ==
LOC: LAB.N 07:04
PROVIDERS: ATTEND Physician Assistant Medical
DX: E78.5 Hyperlipidemia, unspecified (principal); E03.9 Hypothyroidism, unspecified; I10 Essential (primary) hypertension
CPT/HCPCS: 36415; 80053; 80061; 83721; 84443; 85025

== ENCOUNTER 2023-05-29 12:08 | Outpatient (CLI) | payer MEDICARE, OTHER ==
[2023-05-29] MEDS ORDERED: iohexoL-300 100 ML VIAL ONE (12:50)
[2023-05-29 14:02] LABS: CREATININE 0.9 mg/dL (0.6-1.3)
[2023-05-29] MEDS ORDERED: iohexoL-300 100 ML VIAL IVP ONE (15:14)
--- NOTE | 2023-05-29 16:21 | CT Report ---
PROCEDURE: Chest W INDICATIONS: G[place]E CONTRAST: Omni 300 100ml TECHNIQUE: After the administration of intravenous contrast, a CT scan of the chest was performed. Images were recorded and evaluated at appropriate window settings. Reformats: axial MIP of the chest, coronal and sagittal. For radiation dose reduction, the following was used: automated exposure control, adjustme nt of mA and/or kV according to patient size. COMPARISON: None. FINDINGS: Image quality: Excellent. Lungs and pleura: No consolidation. Mild streaky opacity bilaterally. No pleural effusions. No pneumo thorax. Mild emphysematous change. No suspicious pulmonary nodules which require follow up. Small sub pleural groundglass pulmonary nodule in the right lower lobe measuring 0.4 cm, (4/50). Mediastinum: Heart size is normal. No pericardial effusion. No large vessel abnormality. No central p ulmonary embolism. No mediastinal adenopathy by size criteria. Chest wall and lower neck: Thyroid is unremarkable. No axillary or supraclavicular adenopathy by size . Bilateral breast implants with capsular calcification. Prior right breast implant rupture. Bones: No aggressive osseous abnormality. Upper Abdomen: Unremarkable. IMPRESSION: 1. No significant acute airspace opacity. No pleural effusion. 2. No central pulmonary embolism. Reviewed by: Antony Zimmer MD on 05/29/2023 4:20 PM [facility] Approved by: Antony Zimmer MD on 05/29/2023 4:20 PM [facility] Station ID: [id number]
== END 2023-05-29 12:09 | disposition home or self-care (01) ==
LOC: LAB 12:08
PROVIDERS: ATTEND Physician Assistant Medical
DX: R06.09 Other forms of dyspnea (principal)
CPT/HCPCS: 36415; 71260; 82565; Q9967

== ENCOUNTER 2023-07-03 07:44 | Outpatient (CLI) | payer MEDICARE, OTHER ==
--- NOTE | 2023-07-03 18:43 | Ultrasound Report ---
PROCEDURE: Abdomen Complete INDICATIONS: GALLSTONES TECHNIQUE: Real-time scanning was performed of the abdominal and retroperitoneal organs, with image documentatio n. COMPARISON: CT chest 05/29/2023. FINDINGS: Liver: Measures 14.9 cm in length. Increased echogenicity. Main portal vein demonstrates hepatopedal flow. Gallbladder: Gallbladder is nondistended. Probable small gallstones measuring up to 0.5 cm. No gallbl adder wall thickening. No pericholecystic fluid. Negative sonographic Leonardo sign. Biliary ducts: Intrahepatic bile ducts are non-dilated. Extrahepatic bile duct caliber measures 6 m m. Normal is 6-7 mm or less in diameter, or 10 mm or less post-cholecystectomy. Pancreas: Visualized portions of the pancreas are sonographically normal. Tail not well seen due t o bowel gas. Spleen: Spleen is normal in size and homogeneous in echotexture. Measures 11.6 cm. Kidneys: Kidneys are normal in size and echotexture. Right kidney measures 10.8 cm long; left kidne y measures 10.7 cm long. No hydronephrosis or nephrolithiasis. No solid masses. No complex renal cy stic lesions which require follow-up. Aorta: Visualized aorta is normal in caliber at less than 3 cm. Iliacs: Proximal common iliac arteries are normal in caliber at less than 2.5 cm. IVC: Intrahepatic inferior vena cava is patent. Miscellaneous: No free abdominal fluid. IMPRESSION: 1. No acute cholecystitis. Small gallstones. 2. Increased echogenicity of the hepatic parenchyma. This is most commonly seen in hepatic steatosis. Other forms of hepatocellular disease could have a similar appearance. Reviewed by: Antony Zimmer MD on 07/03/2023 6:42 PM PST Approved by: Antony Zimmer MD on 07/03/2023 6:42 PM PST Station ID: [id number]
== END 2023-07-03 07:45 | disposition home or self-care (01) ==
LOC: DI 07:44
PROVIDERS: ATTEND Physician Assistant Medical
DX: K80.20 Calculus of gallbladder without cholecystitis without obstruction (principal); R11.0 Nausea